=== PATIENT | male | born 1965 | race Caucasian/White ===

== ENCOUNTER 2021-04-21 17:43 | Emergency (ER) | payer OTHER ==
[2021-04-21] MEDS ORDERED: Ketorolac Tromethamine 30 MG/ML VIAL ONE (18:10)
[2021-04-21] MEDS ORDERED: Bupivacaine 0.25% 10 ML VIAL ONE (19:32)
[2021-04-21] MEDS ORDERED: Bupivacaine 0.5% 10 ML VIAL ONE (19:32)
== END 2021-04-21 21:07 | disposition home or self-care (01) ==
LOC: ERS 17:43
DX: S62.613A Displaced fracture of proximal phalanx of left middle finger, initial encounter for closed fracture (principal); S61.217A Laceration without foreign body of left little finger without damage to nail, initial encounter; W01.0XXA Fall on same level from slipping, tripping and stumbling without subsequent striking against object, initial encounter
CPT/HCPCS: 12001; 26725; 96372; J1885; J3490; S0020